=== PATIENT | male | born 1970 | race Caucasian/White ===

== ENCOUNTER 2017-11-07 18:47 | Emergency (ER) | payer MEDICAID ==
[~2017-11-07] VITALS: Ht 177.8 cm; Wt 108.9 kg
--- NOTE | 2017-11-07 19:29 | NUR ---
[facility] FAMILY C/O "COUGH CONGESTION X 2 WEEKS." PT IS AAOX4. RESP EVEN AND NONE LABORED. SKIN WNL AND WARM. RESP EVEN AND NONE LABORED. NO S/S OF ACUTE DISTRESS NOTED. PT PLACED ON MONITOR AND POX. AWAITING MD FOR EVAL.
[2017-11-07] MEDS ORDERED: predniSONE 20 MG TABLET PO ONE (19:30)
[2017-11-07] MEDS ORDERED: ALBUTEROL FS 2.5 MG/3 ML VIAL.NEB CONTNEB ONE (19:30)
[2017-11-07] MEDS ORDERED: IPRATROPIUM NEB FS 0.5 MG/2.5 ML AMPUL.NEB NEB ONE (19:30)
[2017-11-07] MEDS ORDERED: predniSONE 20 MG TABLET ONE (19:33)
[2017-11-07] MEDS ORDERED: ALBUTEROL FS 2.5 MG/3 ML VIAL.NEB ONE (19:36)
[2017-11-07] MEDS ORDERED: IPRATROPIUM NEB FS 0.5 MG/2.5 ML AMPUL.NEB ONE (19:36)
--- NOTE | 2017-11-07 19:50 | NUR ---
RT BEDISDE FOR BREATHING TREATMENT
--- NOTE | 2017-11-07 20:39 | NUR ---
Patient discharged to home in stable condition. Written and verbal after care instructions given. Patient verbalizes understanding of instruction. Pt ambulated with steady gait out of ER. VSS upon discharge.
[2017-11-07 20:40] VITALS: BP 136/74
== END 2017-11-07 20:42 | disposition home or self-care (01) ==
LOC: ER 18:48
DX: J45.901 Unspecified asthma with (acute) exacerbation (principal); J06.9 Acute upper respiratory infection, unspecified
CPT/HCPCS: 71045-TC; A4606; Z7610

== ENCOUNTER 2019-10-24 00:25 | Emergency (ER) | payer MEDICAID ==
[~2019-10-24] VITALS: Ht 167.6 cm; Wt 104.3 kg
[2019-10-24 00:25] VITALS: BP 153/99
== END 2019-10-24 00:49 | disposition home or self-care (01) ==
LOC: ER 00:25
DX: J32.9 Chronic sinusitis, unspecified (principal); J45.909 Unspecified asthma, uncomplicated

== ENCOUNTER 2019-12-02 20:25 | Emergency (ER) | payer MEDICAID ==
[~2019-12-02] VITALS: Ht 167.6 cm; Wt 99.8 kg
--- NOTE | 2019-12-02 20:33 | NUR ---
PRESENTED TO THE ER W/ C/O SOB , AND COUGH . ALSO W/ C.O PAIN W/ COUGH. PMH OF ASTHMA. NO RECENT INTERNATIONAL TRAVEL OR CLOSE CONTACT TO SICK PERSON. PT WAS PLACED ON A MONITOR, SATTING 97-98% ON R/A
[2019-12-02] MEDS ORDERED: Magnesium 1GM/D5W 100ML PREMIX 200 ML IV ONE ×2 (20:42→20:49)
[2019-12-02] MEDS ORDERED: ALBUTEROL FS 2.5 MG/3 ML VIAL.NEB ONE (20:48)
[2019-12-02] MEDS ORDERED: IPRATROPIUM NEB FS 0.5 MG/2.5 ML AMPUL.NEB ONE (20:48)
[2019-12-02] MEDS ORDERED: IPRATROPIUM NEB FS 0.5 MG/2.5 ML AMPUL.NEB NEB ONE (21:00)
[2019-12-02] MEDS ORDERED: methylPREDNISolone SOD SUCC 125 MG/2ML VIAL ONE (21:00)
[2019-12-02] MEDS ORDERED: ALBUTEROL FS 2.5 MG/3 ML VIAL.NEB CONTNEB ONE (21:00)
[2019-12-02] MEDS ORDERED: methylPREDNISolone SOD SUCC 125 MG/2ML VIAL IV ONE (21:00)
--- NOTE | 2019-12-02 21:15 | NUR ---
BAG 2 OF 2 OF MAGNESIUM WAS ADMINISTERED. TO BE INFUSED IN 10 MIN W/ END TIME: 2124. WILL CONT TO MONITOR.
--- NOTE | 2019-12-02 22:12 | NUR ---
PT REPORTED FEELING BETTER , - SOB. READY FOR D/C HOME
--- NOTE | 2019-12-02 22:25 | NUR ---
IV removed. Catheter intact and site benign. Pressure and 4x4 applied to site. No bleeding noted.Patient discharged to home in stable condition. rx and Written and verbal after care instructions given. Patient verbalizes understanding of instruction.
[2019-12-02 22:41] VITALS: BP 132/71
== END 2019-12-02 22:25 | disposition home or self-care (01) ==
LOC: ER 20:27
DX: J45.901 Unspecified asthma with (acute) exacerbation (principal); R94.31 Abnormal electrocardiogram [ECG] [EKG]
CPT/HCPCS: 71045; 93005; 94644; 96374; 96375; 99285; J2930; J3475

== ENCOUNTER 2019-12-04 01:26 | Emergency (ER) | payer MEDICAID ==
[~2019-12-04] VITALS: Ht 167.6 cm; Wt 99.8 kg
--- NOTE | 2019-12-04 01:36 | NUR ---
PT AAOX4. AMBULATORY. BIBS. 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 TOOK ALBUTEROL INHALER - INEFFECTIVE. PT ALSO TOOK PREDNISONE 50MG PO. PLACED ON MONITOR AND PULSE OX. VSS. AWAITING MD FOR ORDERS.
[2019-12-04] MEDS ORDERED: methylPREDNISolone SOD SUCC 125 MG/2ML VIAL ONE (01:40)
[2019-12-04] MEDS ORDERED: ONDANSETRON 4 MG TAB.RAPDIS ONE (01:41)
[2019-12-04 01:50] LABS: BASOPHILS # (AUTO) 0.1 /CMM (0.0-0.2); BASOPHILS % (AUTO) 0.5 % (0.0-2.0); EOSINOPHILS % (AUTO) 0.1 % (0.0-6.0); HEMATOCRIT 44 % (39-51); HEMOGLOBIN 14.6 g/dL (13.5-17.5); LYMPHOCYTES # (AUTO) 1.7 /CMM (0.8-4.8); LYMPHOCYTES % (AUTO) 11.7 % (20.0-44.0); MEAN CORPUSCULAR HGB CONC 33 g/dl (31.0-36.0); MEAN CORPUSCULAR VOLUME 86 fL (80-96); MONOCYTES # (AUTO) 1.1 /CMM (0.1-1.30); MONOCYTES % (AUTO) 7.4 % (2.0-12.0); NEUTROPHILS # (AUTO) 11.6 /CMM (1.8-8.9); NEUTROPHILS % (AUTO) 80.3 % (43.0-81.0); PLATELET COUNT (AUTO) 302 /CMM (150-450); RED BLOOD CELL COUNT(AUTO) 5.16 MIL/uL (4.5-6.0); WHITE BLOOD COUNT (AUTO) 14.4 K/uL (4.3-11.0)
--- NOTE | 2019-12-04 01:50 | NUR ---
LABS DRAWN AND SENT TO LAB. MEDS GIVEN, AWAITING RT FOR BREATHING TREATMENT.
[2019-12-04] MEDS ORDERED: ALBUTEROL FS 2.5 MG/3 ML VIAL.NEB ONE (01:51)
[2019-12-04] MEDS ORDERED: IPRATROPIUM NEB FS 0.5 MG/2.5 ML AMPUL.NEB ONE (01:51)
--- NOTE | 2019-12-04 01:52 | NUR ---
RT AT BEDSIDE. PT RECIEVING BREATHING TREATMENT.
[2019-12-04 01:56] LABS: CALCIUM, SERUM 8.6 mg/dL (8.5-10.1); CARBON DIOXIDE 26 mmol/L (21-32); CHLORIDE 104 mmol/L (98-107); CREATININE 1.2 mg/dL (0.6-1.3); GLUCOSE 143 mg/dL (74-106); POTASSIUM 3.4 mmol/L (3.5-5.1); SODIUM SERUM 140 mmol/L (136-145); UREA NITROGEN, BLOOD 27 mg/dL (7-18)
[2019-12-04] MEDS ORDERED: methylPREDNISolone SOD SUCC 125 MG/2ML VIAL IV ONE (02:00)
[2019-12-04] MEDS ORDERED: IPRATROPIUM NEB FS 0.5 MG/2.5 ML AMPUL.NEB NEB ONE (02:00)
[2019-12-04] MEDS ORDERED: ALBUTEROL FS 2.5 MG/3 ML VIAL.NEB CONTNEB ONE (02:00)
[2019-12-04 02:11] LABS: B-TYPE NATRIURETIC PEPTIDE 75 PG/ML (0-125)
--- NOTE | 2019-12-04 04:01 | NUR ---
IV removed. Catheter intact and site benign. Pressure and 4x4 applied to site. No bleeding noted.
--- NOTE | 2019-12-04 05:03 | NUR ---
Patient discharged to home in stable condition. Written and verbal after care instructions given. Patient verbalizes understanding of instruction. Pt RR even and unlabored. VSS. Pt ambulated with steady gait.
[2019-12-04 05:04] VITALS: BP 132/81
== END 2019-12-04 05:16 | disposition home or self-care (01) ==
LOC: ER 01:28
DX: J45.901 Unspecified asthma with (acute) exacerbation (principal); E66.01 Morbid (severe) obesity due to excess calories; Z68.35 Body mass index [BMI] 35.0-35.9, adult
CPT/HCPCS: 36415; 71045; 80048; 83880; 84484; 85025; 87804; 93005; 94644; 96374; 99285; J2930; Q0162

== ENCOUNTER 2021-10-21 21:33 | Emergency (ER) | payer MEDICAID ==
[~2021-10-21] VITALS: Ht 172.7 cm; Wt 99.8 kg
--- NOTE | 2021-10-21 21:56 | NUR ---
BIBS TO ER BED 6. AAOX4. NOT IN RESP DISTRESS, TALKING IN FULL SENTENCES. AMBULATORY. 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 PER PT, HE HAS ASTHMA AND HAVE USED INHALER BUT INEFFECTIVE. PT IS SATTING @ 95% ON RA. PT ON PULSE OX. AWAITING PROVIDER.
[2021-10-21] MEDS ORDERED: ALBUTEROL FS 2.5 MG/0.5 ML VIAL.NEB NEB ONE (22:30)
--- NOTE | 2021-10-21 22:36 | NUR ---
RT @ BEDSIDE FOR BREATHING TX
[2021-10-21] MEDS ORDERED: ALBUTEROL FS 2.5 MG/0.5 ML VIAL.NEB ONE (22:39)
--- NOTE | 2021-10-21 23:24 | NUR ---
Patient discharged to home in stable condition. Written and verbal after care instructions given. Patient verbalizes understanding of instruction.
[2021-10-21 23:25] VITALS: BP 150/90
== END 2021-10-21 23:25 | disposition home or self-care (01) ==
LOC: ER 21:39
DX: J45.909 Unspecified asthma, uncomplicated (principal)

== ENCOUNTER 2022-10-18 21:32 | Emergency (ER) | payer MEDICAID, OTHER ==
[~2022-10-18] VITALS: Ht 172.7 cm; Wt 104.3 kg
[2022-10-18] MEDS ORDERED: IV NS 0.9% 1,000 ML IV ONE (22:00)
[2022-10-18 22:23] LABS: BASOPHILS % (AUTO) 0.3 % (0.0-2.0); EOSINOPHILS % (AUTO) 2.1 % (0.0-6.0); HEMATOCRIT 46 % (39-51); HEMOGLOBIN 15.3 g/dL (13.5-17.5); LYMPHOCYTES # (AUTO) 0.9 K/uL (0.8-4.8); LYMPHOCYTES % (AUTO) 6.8 % (20.0-44.0); MEAN CORPUSCULAR HGB CONC 33 g/dl (31.0-36.0); MEAN CORPUSCULAR VOLUME 85 fL (80-96); MONOCYTES # (AUTO) 0.6 K/uL (0.1-1.30); MONOCYTES % (AUTO) 4.8 % (2.0-12.0); NEUTROPHILS # (AUTO) 10.9 K/uL (1.8-8.9); PLATELET COUNT (AUTO) 275 K/uL (150-450); RED BLOOD CELL COUNT(AUTO) 5.38 MIL/uL (4.5-6.0); WHITE BLOOD COUNT (AUTO) 12.6 K/uL (4.3-11.0)
[2022-10-18 22:39] LABS: CALCIUM, SERUM 8.6 mg/dL (8.5-10.1); CARBON DIOXIDE 26 mmol/L (21-32); CHLORIDE 102 mmol/L (98-107); CREATININE 1.1 mg/dL (0.6-1.3); GLUCOSE 168 mg/dL (74-106); POTASSIUM 3.5 mmol/L (3.5-5.1); SODIUM SERUM 135 mmol/L (136-145); UREA NITROGEN, BLOOD 16 mg/dL (7-18)
[2022-10-18 22:45] LABS: D-DIMER 0.19 mg/L(FEU (0.17-0.50)
[2022-10-18] MEDS ORDERED: methylPREDNISolone SOD SUCC 125 MG/2ML VIAL IV ONE (23:30)
[2022-10-18] MEDS ORDERED: ALBUTEROL FS 2.5 MG/3 ML VIAL.NEB NEB ONE (23:30)
[2022-10-18] MEDS ORDERED: methylPREDNISolone SOD SUCC 125 MG/2ML VIAL ONE (23:32)
[2022-10-18] MEDS ORDERED: ALBUTEROL FS 2.5 MG/3 ML VIAL.NEB ONE (23:50)
[2022-10-18] MEDS ORDERED: PRED50TA PO (23:59)
[2022-10-19] MEDS ORDERED: ALBU18HF2 INH
[2022-10-19] MEDS ORDERED: IPRATROPIUM NEB FS 0.5 MG/2.5 ML AMPUL.NEB NEB ONE (01:00)
[2022-10-19] MEDS ORDERED: ALBUTEROL FS 2.5 MG/3 ML VIAL.NEB NEB ONE (01:00)
[2022-10-19] MEDS ORDERED: IPRATROPIUM NEB FS 0.5 MG/2.5 ML AMPUL.NEB ONE (01:25)
[2022-10-19] MEDS ORDERED: ALBUTEROL FS 2.5 MG/3 ML VIAL.NEB ONE (01:25)
--- NOTE | 2022-10-19 01:59 | NUR ---
Patient discharged to home in stable condition. Written and verbal after care instructions given. Patient verbalizes understanding of instruction.
[2022-10-19 02:00] VITALS: BP 141/88
== END 2022-10-19 02:00 | disposition home or self-care (01) ==
LOC: ER 21:34
DX: J45.901 Unspecified asthma with (acute) exacerbation (principal); J06.9 Acute upper respiratory infection, unspecified
CPT/HCPCS: 99285; 96374; 71045; 96361; 93005 ×2; 85025; 80048; 85378; 36415; 84484 ×2; 85730; 94640 ×3; J2930; J7030

== ENCOUNTER 2024-08-30 01:38 | Emergency (ER) | payer OTHER ==
[~2024-08-30] VITALS: Ht 167.6 cm; Wt 104.3 kg
[~2024-08-30 01:38] MED LIST: ALBU18HF2 INH; PRED50TA PO
[2024-08-30] MEDS ORDERED: ALBUTEROL FS 2.5 MG/0.5 ML VIAL.NEB ONE (02:27)
[2024-08-30 02:30] VITALS: O2SAT 94
[2024-08-30 02:34] VITALS: O2SAT 94
[2024-08-30] MEDS: ALBUTEROL FS 2.5 MG/0.5 ML VIAL.NEB NEB ONE (02:36)
[2024-08-30 02:45] VITALS: O2SAT 98
[2024-08-30 03:04] VITALS: BP 155/84; TEMP 97.3; O2SAT 98
== END 2024-08-30 03:04 | disposition home or self-care (01) ==
LOC: ER 01:41
DX: J45.909 Unspecified asthma, uncomplicated (principal); F41.9 Anxiety disorder, unspecified; Z79.52 Long term (current) use of systemic steroids